=== PATIENT | male | born 1985 | race Caucasian/White ===

== ENCOUNTER 2022-08-27 13:24 | Outpatient (CLI) | payer OTHER ==
--- NOTE | 2022-08-27 18:11 | XRAY Report ---
PROCEDURE: Finger(s) LT INDICATIONS: FRACTURE OF FINGER TECHNIQUE: AP hand, 2 views of the third finger(s) acquired. COMPARISON: None FINDINGS: Bones: There is a comminuted, intra-articular fracture involving the distal phalanx of the third fin narciso. No suspicious bony lesions. Soft tissues: No suspicious soft tissue calcifications. IMPRESSION: Distal third finger fracture. Reviewed by: Barney Olmedo MD on 08/27/2022 5:10 PM [place] Approved by: Barney Olmedo MD on 08/27/2022 5:10 PM [place] Station ID: [id number]
== END 2022-08-27 13:25 | disposition home or self-care (01) ==
LOC: DI 13:24
PROVIDERS: ATTEND Physician Assistant Medical
DX: S62.633A Displaced fracture of distal phalanx of left middle finger, initial encounter for closed fracture (principal)